=== PATIENT | female | born 1965 | race Caucasian/White ===

== ENCOUNTER 2024-03-10 12:05 | Outpatient (CLI) | payer OTHER, SELFPAY ==
--- NOTE | 2024-03-10 13:28 | P.DIET_ITS ---
Reason for Visit: 98835 E11.31 Person Interviewed: Patient Medical History, Labs and Background: Ciarra said she was diagnosed with DM a week ago - she also has glaucoma. Height: 5 ft Weight: 185 lb BMI: 36.2 kg/m2 Weight History: She weighed 88lbs when she got at 18. Her in 2016, and prior to that she cared for him for 12 years. Between that and Covid, she just gradually gained weight. Concerns and Goals: She would like to get rid of excess weight and manage her blood glucose. Sleep Hygiene: In general Ciarra doesn't sleep more that 4 hours/night - she feels like taking care of her perpetually changed her sleep habits. Sometimes she naps during the day. Physical Activity: In general she doesn't do activity, but she looks at a screen. Other Feeding Issues: Ciarra doesn't have any issues. Her Mom does the cooking and shopping. Food Allergies and Sensitivities: NKA or sensitivities. Meds, Supplements & Other: No supplements. Metformin + Ozempic + Glaucoma meds. 24 Hour Recall: Breakfast Time: 8-8:30 2 slices bread w/ peanut butter, cranberry juice Snack Time: Lunch Time: noon some chips or triscuits or cheese stick or tangerine Snack Time: Dinner Time: 5-6pm some protein w/fresh vegetables Snack Time: Eating Out: They eat out 4-5x/week at [facility], [employer], [employer] or [employer] Soda vs Milk vs Water: She drinks 2-3 16 oz bottles water/day or sweat tea, no coffee and occasional diet root beer Additional Comments: Ciarra lives with her brother and Mom - they are all widows. Recommendations: Assessment: Ciarra was very mellow but wants to lose weight and manage her blood glucose. When she asked questions it was more concerning could she work chips and ice cream into her diet. Nutrition Dx: Altered labs r/t new dx of DM2 AEB elevated blood glucose and a wound on her foot that isn't healing. Itervention: We talked through a lot of handouts - Diabetic MyPlate, how to read/use food labels, CHO counting, and 5 days of [id number] kcals with balanced CHO's, proteins and fats. When not snacking she likes to sit in front of a computer, so we made walking 10-15 minutes/day, 3-4x/week a goal - I encouraged here to do that for weight loss, glucose management and mental well-being. Currently her Mom does most of the shopping and cooking, so we discussed that Ciarra and her brother could take ownership there and create an environment of healthier food choices at home for snacks and meals. Though she is regular with BM's we still discussed drinking more water for all the benefits that come with it. If she wants chips or ice cream we looked at how to work it in to her meal plan, but also I reminded her that it doesn't fill you up, so you need nutrient dense food to balance blood sugar and fill up. In a typical day she snacks and grazes then has a big meal at night. Frequently she eats more than she wants to and feels sick. We discussed the importance of 3 meals and one snack each day to give regular fuel to her body and to not be so ravenous that she makes poor food choices or overeats. Monitoring and Evaluation: Ciarra seemed overwhelmed with the information so I showed her that my email and phone number/extension were at the bottom of her take home sheet. I encouraged her to reach out with questions and to look to her Mom and brother for encouragement. Since she has lost about 5 lbs, I also praised her for a good start. Coding Level of Care Code Nutrition/Individ/Init 60 min Time Spent (min) 60
== END 2024-03-10 12:06 | disposition home or self-care (01) ==
LOC: DIET 12:06
PROVIDERS: Visit Provider Family Medicine
DX: E11.9 Type 2 diabetes mellitus without complications (principal)
CPT/HCPCS: 97802

== ENCOUNTER → 2024-03-11 14:45 | Outpatient (BNVA) | payer OTHER, SELFPAY | PROVIDERS: Visit Provider Podiatrist Foot & Ankle Surgery | DX: L97.522 Non-pressure chronic ulcer of other part of left foot with fat layer exposed (principal); G62.9 Polyneuropathy, unspecified; E11.621 Type 2 diabetes mellitus with foot ulcer | CPT/HCPCS: 11042; 99204 ==

== ENCOUNTER → 2024-03-16 08:46 | Outpatient (BNVA) | payer OTHER, SELFPAY | PROVIDERS: Visit Provider Nurse Practitioner Family | DX: E11.52 Type 2 diabetes mellitus with diabetic peripheral angiopathy with gangrene (principal); E11.621 Type 2 diabetes mellitus with foot ulcer; L97.522 Non-pressure chronic ulcer of other part of left foot with fat layer exposed | CPT/HCPCS: 11042; 99213; A6210 ==

== ENCOUNTER → 2024-03-18 12:59 | Outpatient (BNVA) | payer OTHER, SELFPAY | PROVIDERS: Visit Provider Thoracic Surgery (Cardiothoracic Vascular Surgery) | DX: E11.52 Type 2 diabetes mellitus with diabetic peripheral angiopathy with gangrene (principal); E11.621 Type 2 diabetes mellitus with foot ulcer; L97.521 Non-pressure chronic ulcer of other part of left foot limited to breakdown of skin | CPT/HCPCS: 29445; A6210 ==

== ENCOUNTER → 2024-03-23 08:57 | Outpatient (BNVA) | payer OTHER, SELFPAY | PROVIDERS: Visit Provider Nurse Practitioner Family | DX: Z09 Encounter for follow-up examination after completed treatment for conditions other than malignant neoplasm (principal); Z87.2 Personal history of diseases of the skin and subcutaneous tissue | CPT/HCPCS: 99212 ==

== ENCOUNTER 2024-07-14 13:07 | Outpatient (CLI) | payer OTHER, SELFPAY ==
--- NOTE | 2024-07-14 13:12 | MM_ITS ---
WS: [id number] VIEWS: MLO and CC views both breasts. 3D digital tomosynthesis is also included in this exam. No prior exams Findings: There was no sign of mass, architectural distortion or suspicious calcification in either breast. The breasts are heterogeneously dense which may obscure small masses MM/[place] [id number] Impression: BI-RADS: 2-Benign finding FOLLOW-UP: 1 Year Follow-up This mammogram was also analyzed by the Computer Aided Detection System R2 Imag e Check Scaler.
== END 2024-07-14 13:08 | disposition home or self-care (01) ==
LOC: RAD 13:07
PROVIDERS: PCP Family Medicine; Visit Provider Family Medicine
DX: Z12.31 Encounter for screening mammogram for malignant neoplasm of breast (principal); R92.333 Mammographic heterogeneous density, bilateral breasts
CPT/HCPCS: 77063; 77067